=== PATIENT | male | born 1980 | race Caucasian/White ===

== ENCOUNTER 2022-02-19 13:47 | Emergency (ER) | payer BC, SELFPAY ==
[2022-02-19 13:54] VITALS: BP 137/73; PULSE 69; RESP 14; TEMP 36.8; O2SAT 98
--- NOTE | 2022-02-19 13:59 | ED.SKABFB ---
HPI - Skin/Abscess/Foreign Bdy General Chief complaint: Skin/Abscess/Foreign Body Stated complaint: Bee Sting Time Seen by Provider: 02/19/22 14:00 Source: patient and RN notes reviewed Mode of arrival: ambulatory Limitations: no limitations History of Present Illness HPI narrative: 41-year-old male presents concern for wasp sting to the left forearm. Reports he was stung yesterday and had small amount of redness and swelling. Reports redness and swelling increased today. He reports he is itchy, denies pain. He denies trouble breathing, difficulty swallowing, swollen lips, swollen tongue. Denies [id number] intervention. MD complaint: insect bite/sting Related Data Allergies Allergy/AdvReac Type Severity Reaction Status Date / Time No Known Allergies Allergy Verified 02/19/22 13:58 Review of Systems Review of Systems: CONSTITUTIONAL: Denies malaise, chills, sweats, or fever. EYES: Denies redness, or discharge. ENT: Denies rhinorrhea, congestion, swollen lips, swollen tongue CARDIOVASCULAR: Denies chest pain, palpitations, or edema. RESPIRATORY: Denies cough or dyspnea. GASTROINTESTINAL: Denies abdominal pain, nausea, vomiting SKIN: Reports redness, swelling, itching to the left forearm at sting site MUSCULOSKELETAL: Denies joint painor myalgia. NEUROLOGIC: Denies headache. All systems reviewed & are unremarkable except as noted in HPI and below PMFSH Past Medical History Medical History (Updated 02/19/22 @ 14:07 by Jane Alejandra NP) Patellar tendonitis Right knee pain Family History Family History Other Cerebrovascular accident Diabetes mellitus Social History Social History Smoking status: Never smoker Comments At time of signature, agree with nursing past medical, surgical, social and family history. There is no relevant family history pertinent to the presenting complaint Exam Narrative: GENERAL: Well-appearing, well-nourished, and in no acute distress. HEAD: Normocephalic, atraumatic. EYES: PERRLA, conjunctivae clear, and EOMI. ENT: Mucous membranes moist. NECK: Supple. No lymphadenopathy CHEST: Clear to auscultation. No respiratory distress. HEART: Regular rate and rhythm. SKIN: Warm, dry. Erythema with mild warmth and mild edema noted to the left forearm, no induration, no tenderness, no foreign body NEURO: Alert and oriented x3. PSYCH: Normal mood and affect Course Course Emergency Course: Patient is aware of diagnosis, understands and agrees to treatment plan. Anticipatory guidance given. Patient agrees to follow-up as directed and is aware of reasons to seek care at the emergency department. Portions of this record may have been created with voice recognition software Level of Care: Express Care Visit Vital Signs Vital signs: Reviewed. MDM - Skin/Abscess/Foreign Bdy MDM Narrative Medical decision making narrative: Does not appear at this time to be erythema multiforme, bullous, SJS, TEN; no evidence at this time to suggest RMSF, endocarditis or Lyme disease; patient looks well, nontoxic and is tolerating oral intake; no neurologic signs or symptoms; no headache, photophobia or neck pain; afebrile; appropriate for initial outpatient treatment; discussed the importance of follow-up, patient agrees; question, viral exanthema, contact dermatitis, allergic dermatitis, eczema, urticaria, cellulitis, insect sting, allergic reaction No soft palate or uvula edema, no tongue, lip edema or other mucosal involvement, no respiratory compromise, no stridor, no wheezing, no wheezing, no history of syncope, no hypotension, no nausea, vomiting, or diarrhea. Instructed patient to go to nearest ER immediately for any worsening symptoms including but not limited to: fever, spreading rash, pain, sore throat, headache, dizziness, chest pain, trouble breathing, or any symptoms concerning to the patient
== END 2022-02-19 14:10 | disposition home or self-care (01) ==
PROVIDERS: Emergency Provider Nurse Practitioner
DX: T63.461A Toxic effect of venom of wasps, accidental (unintentional), initial encounter (principal)
CPT/HCPCS: 99213; G0463

== ENCOUNTER 2023-03-29 09:16 | Emergency (ER) | payer BC, SELFPAY ==
--- NOTE | 2023-03-29 09:27 | ED.EYEPROB ---
HPI - Eye Problem General Chief complaint: Eye Problems Stated complaint: Right Eye Irritation Time Seen by Provider: 03/29/23 09:27 Source: patient Mode of arrival: ambulatory Limitations: no limitations History of Present Illness HPI Narrative: 42 yo M presents with redness, clear drainage, light sensitivity and pain to R eye since yesterday. Pt states he was redoing kitchen, putting up drywall. Was wearing safety glasses. Removed glasses to wipe his eye and had sudden pain. Reports hx of corneal abrasion. has looked for FB but does not see one. Concerned he scratched his eye. all systems reviewed and negative except as noted above. Related Data Allergies Allergy/AdvReac Type Severity Reaction Status Date / Time No Known Allergies Allergy Verified 03/29/23 09:29 Review of Systems Review of Systems: CONSTITUTIONAL: Denies fever, chills, or sweats. EYES: reports blurry vision, clear drainage, redness and pain to R eye. ENT: Denies rhinorrhea, congestion, sore throat, or otalgia. CARDIOVASCULAR: Denies chest pain, palpitations, or edema. RESPIRATORY: Denies cough or dyspnea. GASTROINTESTINAL: Denies abdominal pain, nausea, vomiting, or diarrhea. GENITOURINARY: Denies dysuria or hematuria. SKIN: Denies rash or itching. MUSCULOSKELETAL: Denies back pain, joint pain, or myalgia. NEUROLOGIC: Denies headache, numbness, or weakness. PSYCHIATRIC: Denies anxiety or depression. All other systems reviewed are negative, except as documented in HPI. [facility] Past Medical History Medical History (Updated 03/29/23 @ 09:53 by Magda Pearson NP) Patellar tendonitis Right knee pain Family History Family History Other Cerebrovascular accident Diabetes mellitus Social History Social History Smoking status: Never smoker Comments At time of signature, agree with nursing past medical, surgical, social and family history. There is no relevant family history pertinent to the presenting complaint. Exam Narrative: GENERAL: This is a well-nourished, well-developed patient, in no apparent distress. HEAD: normocephalic, atraumatic. EYES: PERRL. Sclera and conjunctiva erythematous R eye, clear drainage. Topical anesthetic was instilled with good anesthesia using 2gtt of opth anesthetic agent (tetracaine). Fluorescein stain of the R eye was performed. corneal abrasion at 11 o'clock R eye NO FB, ulcer or dendritic lesions. Upper lid was everted and no FB or lesions were noted. Normal saline irrigation eye solution was performed and the patient tolerated the procedure well, no adverse reaction or complications. EARS: External ears normal NOSE: External nose normal NECK: Neck supple, non-tender without lymphadenopathy, masses or thyromegaly. CARDIOVASCULAR: Regular rate and rhythm without murmurs, gallops, or rubs. RESPIRATORY: Clear to auscultation. Breath sounds equal bilaterally. No wheezes, rales, or rhonchi. SKIN: warm, Dry, intact with no suspicious lesions or rash, good texture and turgor. NEURO: awake, alert, and oriented to person, place and time. There were no obvious focal neurologic abnormalities. EXTREMITIES: No joint tenderness, effusion, or edema noted. Eyes: Eyes/upper lids images: 1. corneal abrasion Course Course Level of Care: Express Care Visit Vital Signs Vital signs: Vital Signs Temperature 36.6 C 03/29/23 09:31 Pulse Rate 63 03/29/23 09:31 Respiratory Rate 16 03/29/23 09:31 Blood Pressure 124/86 03/29/23 09:31 Pulse Oximetry 98 03/29/23 09:31 Oxygen Delivery Room Air 03/29/23 09:31 Temperature 36.6 C 03/29/23 09:31 Pulse Rate 63 03/29/23 09:31 Respiratory Rate 16 03/29/23 09:31 Blood Pressure 124/86 03/29/23 09:31 Pulse Oximetry 98 03/29/23 09:31 Oxygen Delivery Room Air 03/29/23 09:31 reviewed MDM - Eye Problem MDM Narrative Med
[2023-03-29 09:31] VITALS: BP 124/86; PULSE 63; RESP 16; TEMP 36.6; O2SAT 98
== END 2023-03-29 09:55 | disposition home or self-care (01) ==
PROVIDERS: Emergency Provider Nurse Practitioner Family
DX: S05.01XA Injury of conjunctiva and corneal abrasion without foreign body, right eye, initial encounter (principal); X58.XXXA Exposure to other specified factors, initial encounter
CPT/HCPCS: 99213; A9270; G0463